=== PATIENT | male | born 1955 ===

== ENCOUNTER 2020-05-14 06:31 | Day surgery (SDC) | payer MEDICARE, MEDICAID, SELFPAY ==
[2020-05-09 11:16] VITALS: BMI 23.4
--- NOTE | 2020-05-10 16:34 | MHC.SHP ---
Pre-Procedural Eval Section A The patient is an INPATIENT: No The History & Physical has been completed within 30 days and I have reviewed it.: Yes Section B Chief Complaint: Cataract Right Eye Allergies: Allergies Allergy/AdvReac Type Severity Reaction Status Date / Time No Known Allergies Allergy Unverified 04/05/20 15:41 Plan Diagnosis/Plan: Unchanged Patient has been examined and remains a candidate for the planned procedure
--- NOTE | 2020-05-11 10:44 | P.CONAN_ITS ---
Documented by User: Morenita Garcia 05/11/20 10:45 HPI - Anesthesia Eval Consult details Narrative: 64yo M for cataract PCP cleared [facility] Past Medical History Medical History History of coma Social History Social History Smoking Status: Former smoker Smoking Quit Date: 2004 Use of substances other than those prescribed or required for medical reasons: No Advance Directives: No Advance Directives Information Provided: No Advance Directives on File: No Meds Allergies Allergy/AdvReac Type Severity Reaction Status Date / Time No Known Allergies Allergy Verified 05/14/20 07:02 Exam Exam Date and Time: May 11, 2020 1044 Height,Weight and Vital Signs: Height 5 ft 11 in Weight 76.204 kg Assessment and Plan Assessment Anesthesia Assessment: Chart Reviewed Documented by User: Jade De La O 05/14/20 07:23 [facility] Past Medical History Medical History History of coma Social History Social History Smoking Status: Former smoker Smoking Quit Date: 2004 Use of substances other than those prescribed or required for medical reasons: No Advance Directives: No Advance Directives Information Provided: No Advance Directives on File: No Meds Allergies Allergy/AdvReac Type Severity Reaction Status Date / Time No Known Allergies Allergy Verified 05/14/20 07:02 Exam Airway Mallampati Class: II TM Dist: >3cm Neck ROM: Full Loose/Missing/Broken Teeth: Yes (Missing multiple teeth on,y has 2 on bottom right) Heart: RRR Lungs: CTA BL Assessment and Plan Final Anesthetic Review NPO: Yes ASA Class: II Final Preanesthetic Review: Meds/Allgs Chart Reviewed and Consent Obtained/Reviewed Patient Risk: Low Procedure Risk: Low Anesthetic Plan Anesthetic Plan: MAC: Disposition: Standard PACU
[2020-05-14 06:38] VITALS: BP 105/68; PULSE 54; RESP 16; TEMP 36.7; O2SAT 98
[2020-05-14] MEDS: Tetracaine HCl/PF 0.5% Oph Sol 4 ML DROPS 1 DROP EYE-RIGHT (07:05)
[2020-05-14] MEDS: Tropicamide 1 % Ophth Sol 3 ML BTL 1 DROP EYE-RIGHT ×3 (07:07→07:16)
--- NOTE | 2020-05-14 08:20 | HO.PNOPHT ---
Ophthalmology Procedure Procedure Ophthalmology Viscoelastic: Marj Echeverriat Dual Pack Pro Ophthalmology Lenses: TECNIS [id number] (21.5) Procedure Notes: PREOPERATIVE DIAGNOSIS: Decreased visual acuity right eye secondary to cataract POSTOPERATIVE DIAGNOSIS: Same PROCEDURE: Right cataract extraction with intraocular lens insertion SURGEON: Ronnell Ahumada M.D. ANESTHESIA: Topical/MAC ESTIMATED BLOOD LOSS: None COMPLICATIONS: None After obtaining informed consent, the patient was brought to the operating room suite and placed in the supine position. After adequate sedation per anesthesia, topical drops of Tetracaine were given to the right eye. The eye was then prepped and draped in the usual sterile fashion. The operating room microscope was then positioned over the operative eye and a lid speculum placed. A paracentesis was created. Viscoelastic was then instilled into the anterior chamber. A three plane incision was then created temporally, utilizing a 2.85 mm keratome. Capsulotomy forceps were then utilized to create a circular tear capsulotomy. Hydrodissection and hydrodelineation were carried out until adequate mobilization of the nucleus occurred. Phacoemulsification was then utilized to remove the dense central nucleus followed by removal of the cortical material utilizing the automated aspiration irrigation unit. Viscoelastic was instilled into the posterior capsular bag followed by placement of a posterior chamber intraocular lens without difficulty. The residual Viscoelastic was then removed utilizing the automated IA machine. The wound was checked and found to be watertight. The patient tolerated the procedure well and the lid speculum was removed. Intracameral injection of Vigamox 0.1 mL followed by a subtenon injection of Kenalog-40 0.2 mL were administered. The patient will be seen in the a.m.
== END 2020-05-14 08:53 | disposition home or self-care (01) ==
PROVIDERS: Visit Provider Ophthalmology
PROC: (CPT 66985; principal; 2020-05-14 08:00)
DX: H25.11 Age-related nuclear cataract, right eye (principal); H54.7 Unspecified visual loss; H40.033 Anatomical narrow angle, bilateral; Z87.891 Personal history of nicotine dependence
CPT/HCPCS: 66984; J2250; J3010; J3300; V2632

== ENCOUNTER 2020-05-28 07:00 | Day surgery (SDC) | payer MEDICARE, MEDICAID, SELFPAY ==
[2020-05-09 11:22] VITALS: BMI 23.4
--- NOTE | 2020-05-24 08:18 | MHC.SHP ---
Pre-Procedural Eval Section A The patient is an INPATIENT: No The History & Physical has been completed within 30 days and I have reviewed it.: Yes Section B Chief Complaint: Cataract Left Eye Allergies: Allergies Allergy/AdvReac Type Severity Reaction Status Date / Time No Known Allergies Allergy Verified 05/14/20 07:02 Plan Diagnosis/Plan: Unchanged Patient has been examined and remains a candidate for the planned procedure
--- NOTE | 2020-05-25 08:48 | P.CONAN_ITS ---
Documented by User: Morenita Garcia 05/25/20 14:02 HPI - Anesthesia Eval Consult details Narrative: 64yo M for cataract PCP cleared 1st eye 05/14/20: [facility], [facility] [facility] Past Medical History Medical History History of coma Surgical History Surgical History H/O cataract extraction Social History Social History Alcohol intake: current Alcohol intake frequency: a few times a month Alcohol type: beer Smoking Status: Former smoker Smoking Quit Date: 2004 Use of substances other than those prescribed or required for medical reasons: No Advance Directives: No Advance Directives Information Provided: No Advance Directives on File: No Meds Allergies Allergy/AdvReac Type Severity Reaction Status Date / Time No Known Allergies Allergy Verified 05/14/20 07:02 Exam Exam Date and Time: May 25, 2020 0848 Height,Weight and Vital Signs: Height 5 ft 11 in Weight 76.204 kg Assessment and Plan Assessment Anesthesia Assessment: Chart Reviewed Documented by User: Jade De La O 05/28/20 07:57 [facility] Past Medical History Medical History History of coma Surgical History Surgical History H/O cataract extraction Social History Social History Alcohol intake: current Alcohol intake frequency: a few times a month Alcohol type: beer Smoking Status: Former smoker Smoking Quit Date: 2004 Use of substances other than those prescribed or required for medical reasons: No Advance Directives: No Advance Directives Information Provided: No Advance Directives on File: No Meds Allergies Allergy/AdvReac Type Severity Reaction Status Date / Time No Known Allergies Allergy Verified 05/14/20 07:02 Exam Airway Mallampati Class: II (Has only 2 teeth in mouth) TM Dist: >3cm Neck ROM: Full Heart: RRR Lungs: CTA BL Assessment and Plan Final Anesthetic Review NPO: Yes ASA Class: II Final Preanesthetic Review: Meds/Allgs Chart Reviewed and Consent Obtained/Reviewed Patient Risk: Low Procedure Risk: Low Anesthetic Plan Disposition: Standard PACU
[2020-05-28 07:51] VITALS: BP 102/69; PULSE 57; RESP 16; TEMP 36.6; O2SAT 96
[2020-05-28] MEDS: Tetracaine HCl/PF 0.5% Oph Sol 4 ML DROPS 1 DROP EYE-LEFT (08:08)
[2020-05-28] MEDS: Tropicamide 1 % Ophth Sol 3 ML BTL 1 DROP EYE-LEFT ×3 (08:09→08:16)
[2020-05-28] MEDS: Lactated Ringers 500 ML 50 ML IV (08:14)
--- NOTE | 2020-05-28 09:03 | HO.PNOPHT ---
Ophthalmology Procedure Procedure Ophthalmology Viscoelastic: Marj Echeverriat Dual Pack Pro Ophthalmology Lenses: TECNIS [id number] (21.5) Procedure Notes: PREOPERATIVE DIAGNOSIS: Decreased visual acuity left eye secondary to cataract POSTOPERATIVE DIAGNOSIS: Same PROCEDURE: Left cataract extraction with intraocular lens insertion SURGEON: Ronnell Ahumada M.D. ANESTHESIA: Topical/MAC ESTIMATED BLOOD LOSS: None COMPLICATIONS: None After obtaining informed consent, the patient was brought to the operation room suite and placed in the supine position. After adequate sedation per anesthesia, topical drops of Tetracaine were given to the left eye. The eye was then prepped and draped in the usual sterile fashion. The operating room microscope was then positioned over the operative eye and a lid speculum placed. A paracentesis was created. Viscoelastic was then instilled into the anterior chamber. A three plane incision was then created temporally, utilizing a 2.85 mm keratome. Capsulotomy forceps were then utilized to create a circular tear capsulotomy. Hydrodissection and hydrodelineation were carried out until adequate mobilization of the nucleus occurred. Phacoemulsification was then utilized to remove the dense central nucleus followed by removal of the cortical material utilizing the automated aspiration irrigation unit. Viscoat elastic was instilled into the posterior capsular bag followed by placement of a posterior chamber intraocular lens without difficulty. The residual Viscoat elastic was then removed utilizing the automated IA machine. The wound was check and found to be watertight. The patient tolerated the procedure well and the lid speculum was removed. Intracameral injection of Vigamox 0.1 mL followed by a subtenon injection of Kenalog-40 0.2 mL were administered. The patient will be seen in the a.m.
[2020-05-28 09:08] VITALS: BP 121/68; PULSE 51; RESP 16; TEMP 36.1; O2SAT 100
== END 2020-05-28 09:53 | disposition home or self-care (01) ==
PROVIDERS: Visit Provider Ophthalmology
PROC: (CPT 66985; principal; 2020-05-28 09:00)
DX: H25.12 Age-related nuclear cataract, left eye (principal); H54.7 Unspecified visual loss; H40.033 Anatomical narrow angle, bilateral; Z87.891 Personal history of nicotine dependence
CPT/HCPCS: 66984; J2250; J3010; J3300; V2632

== ENCOUNTER 2020-11-26 12:35 | Outpatient (REF) | payer MEDICARE, MEDICAID, SELFPAY ==
[2020-11-26 12:52] VITALS: BMI 23.7
[2020-11-26 12:54] VITALS: BP 128/81; PULSE 69; RESP 16; TEMP 37.1; O2SAT 96
== END 2020-11-26 12:36 | disposition home or self-care (01) ==
LOC: HO.MS 12:35
PROVIDERS: Visit Provider Ophthalmology
PROC: (CPT 66821; principal; 2020-11-26 15:40)
DX: H26.492 Other secondary cataract, left eye (principal); H53.8 Other visual disturbances; H55.00 Unspecified nystagmus; Z96.1 Presence of intraocular lens; Z79.899 Other long term (current) drug therapy; Z87.891 Personal history of nicotine dependence
CPT/HCPCS: 66821

== ENCOUNTER 2020-12-10 12:51 | Outpatient (REF) | payer MEDICARE, MEDICAID, SELFPAY ==
[2020-12-10 13:01] VITALS: BP 143/81; PULSE 81; RESP 16; TEMP 36.8; O2SAT 98; BMI 23.7
== END 2020-12-10 12:52 | disposition home or self-care (01) ==
LOC: HO.MS 12:51
PROVIDERS: Visit Provider Ophthalmology
PROC: (CPT 66821; principal; 2020-12-10 18:00)
DX: H26.491 Other secondary cataract, right eye (principal); Z96.1 Presence of intraocular lens; Z87.891 Personal history of nicotine dependence
CPT/HCPCS: 66821

== ENCOUNTER 2022-08-15 11:45 | Outpatient (REF) | payer MEDICARE, MEDICAID, SELFPAY ==
[2022-08-15 14:05] LABS: MANUAL DIFF FLAG NO
[2022-08-15 14:11] LABS: Basophils Absolute Auto 0.1 X10*3/uL (0.0-0.2); Basophils Percent Auto 0.9 % (0-2); Eosinophils Absolute Auto 0.3 X10*3/uL (0.0-0.4); Eosinophils Percent Auto 4.9 % (0-4); Hematocrit 43.1 % (42.0-52.0); Hemoglobin 13.3 g/dl (14.0-18.0); Mean Corpuscular HGB Conc 30.9 g/dl (31.0-36.0); Mean Corpuscular Hemoglobin 26.9 pg (27.0-33.0); Mean Corpuscular Volume 87.1 fL (80.0-98.0); Mean Platelet Volume 10.4 fL (9.4-12.4); Monocytes Absolute Auto 0.6 X10*3/uL (0.1-1.2); Monocytes Percent Auto 11.1 % (2-11); Neutrophils Absolute Auto 2.4 x10*3/uL (2.0-8.3); Neutrophils Percent Auto 45.1 % (45-73); Platelet Count 239 X10*3/uL (160-400); Red Blood Count 4.95 X10*6/uL (4.60-5.80); Red Cell Distribution Width 13.5 % (11.0-16.0); White Blood Count 5.3 X10*3/uL (4.8-10.8)
[2022-08-15 14:45] LABS: Alanine Aminotransferase 29 U/L (0-40); Alkaline Phosphatase 108 U/L (39-117); Anion Gap 13 (12-20); Aspartate Amino Transferase 38 U/L (5-37); Bilirubin Total 0.6 mg/dL (0.0-1.0); Blood Urea Nitrogen 11 mg/dL (9-16); Calcium 9.9 mg/dL (8.4-10.2); Carbon Dioxide 32 mmol/L (22-29); Chloride 102 mmol/L (96-108); Estimated Glomerular Filt Rate > 60; Glucose Random 96 mg/dL (60-115); Potassium 4.5 mmol/L (3.3-5.1); Sodium 142 mmol/L (135-145); Total Protein 7.7 g/dL (6.5-8.0)
[2022-08-18 04:36] LABS: HBc Num1 9.44 S/CO (0.00-0.79); HBsAGNum1 0.26 S/CO (0.00-0.99); HIV AB/AG Nonreactive (Nonreactive); HIV Num 1 0.05 S/CO (0.00-0.99); Hepatitis A Antibody IgM 0.42 Index (0-0.79); Hepatitis B Surface Antigen Negative (Negative); ~HepC Num1 13.12 S/CO (0.00-0.79); ~Hepatitis A Antibody IgM Nonreactive (Nonreactive); ~Hepatitis B Surface Antibody NONREACTIVE (Nonreactive); ~Hepatitis C Antibody Reactive (Nonreactive)
[2022-08-18 05:18] LABS: HBc Num2 9.04 S/CO; HBc Num3 9.04 S/CO; Hepatitis B Core Antibody Reactive (Nonreactive)
[2022-08-20 01:42] LABS: Hepatitis B Core Antibody IgM NON-REACTIVE (NON-REACTIVE)
== END 2022-08-15 11:46 | disposition home or self-care (01) ==
LOC: HO.HMGCLDS 11:45
PROVIDERS: Visit Provider Physician Assistant
DX: Z00.00 Encounter for general adult medical examination without abnormal findings (principal)
CPT/HCPCS: 36415; 80053; 85025; 86704; 86705; 86706; 86709; 86803; 87340; 87389

== ENCOUNTER 2022-09-05 08:37 | Outpatient (REF) | payer MEDICARE, MEDICAID, SELFPAY ==
--- NOTE | ~2022-09-05 | US_ITS ---
EXAMINATION: US ABDOMEN COMPLETE CLINICAL INFORMATION: Abnormal levels of other serum enzymes. COMPARISON: None TECHNIQUE: Real-time imaging of the abdominal viscera. FINDINGS: PANCREAS: Largely obscured by overlapping bowel gas. ABDOMINAL AORTA: The proximal, mid, and distal segments are normal in caliber. INFERIOR VENA CAVA: Visualized portions are normal. LIVER: The liver is normal in size. The liver contour is normal. There is diffuse increased liver parenchymal echogenicity. No focal hepatic lesion. There is no intrahepatic biliary duct dilatation seen. GALLBLADDER: There is echogenic bile. The gallbladder is physiologically distended without evidence of stones, polyps, wall thickening or pericholecystic fluid. COMMON BILE DUCT: Normal in caliber measuring 0.5 cm in diameter. RIGHT KIDNEY: Normal. No hydronephrosis. No renal calculi or focal parenchymal lesions. The kidney measures 9.7 cm in maximum dimension. LEFT KIDNEY: Normal. No hydronephrosis. No renal calculi or focal parenchymal lesions. The kidney measures 9.9 cm in maximum dimension. SPLEEN: Normal. The spleen measures 10.2 cm in maximum dimension. FREE FLUID: None. US/US abdomen complete IMPRESSION: There is generalized increase in hepatic echotexture, consistent with fatty infiltration or hepatocellular disease. Please correlate clinically. No focal hepatic mass or intrahepatic biliary dilatation is seen.
== END 2022-09-05 08:38 | disposition home or self-care (01) ==
LOC: HO.HMGCX 08:37
PROVIDERS: PCP Internal Medicine; Visit Provider Internal Medicine
DX: R74.8 Abnormal levels of other serum enzymes (principal)
CPT/HCPCS: 76700

== ENCOUNTER 2022-09-13 09:18 | Outpatient (REF) | payer MEDICARE, MEDICAID, SELFPAY ==
[2022-09-17 17:33] LABS: HCV RNA PCR Qn 12300000 IU/mL (NOT DETECTED); HCV RNA PCR Qn 7.09 Log IU/mL (NOT DETECTED)
[2022-09-24 21:38] LABS: HCV Genotype LiPA 1a
== END 2022-09-13 09:19 | disposition home or self-care (01) ==
LOC: HO.LAB 09:18
PROVIDERS: PCP Internal Medicine; Visit Provider Internal Medicine
DX: Z11.3 Encounter for screening for infections with a predominantly sexual mode of transmission (principal)
CPT/HCPCS: 36415; 87522; 87902

== ENCOUNTER 2022-09-22 11:59 | Outpatient (REF) | payer MEDICARE, MEDICAID, SELFPAY ==
[2022-09-22 14:15] LABS: Cholesterol 139 mg/dL; HDL Cholesterol 43 mg/dL; LDL Cholesterol Calculated 86 mg/dl; Triglycerides 51 mg/dL
[2022-09-22 14:26] LABS: HIV AB/AG Nonreactive (Nonreactive); HIV Num 1 0.07 S/CO (0.00-0.99)
[2022-09-22 14:31] LABS: Thyroid Stimulating Hormone 1.14 uIU/mL (0.32-4.0)
[2022-09-23 13:19] LABS: HCV RNA PCR Qn 6.51 Log IU/mL (NOT DETECTED)
[2022-09-30 00:44] LABS: FIB-ALT 31 U/L (9-46); FIB-Alpha-2-Macroglobulin 383 mg/dL (106-279); FIB-Apolipoprotein A1 127 mg/dL (94-176); FIB-GGT 84 U/L (3-70); FIB-Haptoglobin 149 mg/dL (43-212); FIB-Total Bilirubin 0.8 mg/dL (0.2-1.2); Liver Fibrosis Score 0.81; Liver Fibrosis Stage F4; Nec Inflam Act Grade A0-A1; Nec Inflam Act Score 0.28
[2022-09-30 16:04] LABS: HCV Genotype LiPA 1a
== END 2022-09-22 12:00 | disposition home or self-care (01) ==
LOC: HO.LAB 11:59
PROVIDERS: PCP Internal Medicine; Referring Provider Internal Medicine; Visit Provider Physician Assistant
DX: B19.20 Unspecified viral hepatitis C without hepatic coma (principal); F41.1 Generalized anxiety disorder; R79.89 Other specified abnormal findings of blood chemistry; Z79.899 Other long term (current) drug therapy
CPT/HCPCS: 36415; 80061; 81596; 84443; 87389; 87522; 87902; 99212

== ENCOUNTER → 2022-10-06 12:53 | Outpatient (BNVA) | payer MEDICARE, MEDICAID, SELFPAY | PROVIDERS: PCP Internal Medicine; Visit Provider Physician Assistant | DX: B19.20 Unspecified viral hepatitis C without hepatic coma (principal); Z86.19 Personal history of other infectious and parasitic diseases | CPT/HCPCS: 99212 ==

== ENCOUNTER 2022-11-24 08:09 | Outpatient (REF) | payer MEDICARE, MEDICAID, SELFPAY ==
[2022-11-24 08:27] LABS: MANUAL DIFF FLAG NO
[2022-11-24 08:42] LABS: Basophils Absolute Auto 0.1 X10*3/uL (0.0-0.2); Basophils Percent Auto 1.1 % (0-2); Eosinophils Absolute Auto 0.2 X10*3/uL (0.0-0.4); Hematocrit 44.4 % (42.0-52.0); Hemoglobin 14.1 g/dl (14.0-18.0); Imm Gran Abs Auto 0.02 X10*3/uL (0.00-0.03); Imm Gran Pct Auto 0.3 % (0.0-0.4); Lymphocytes Absolute Auto 2.2 X10*3/uL (1.2-4.9); Mean Corpuscular HGB Conc 31.8 g/dl (31.0-36.0); Mean Corpuscular Hemoglobin 27.5 pg (27.0-33.0); Mean Corpuscular Volume 86.5 fL (80.0-98.0); Monocytes Absolute Auto 0.7 X10*3/uL (0.1-1.2); Monocytes Percent Auto 10.8 % (2-11); Neutrophils Absolute Auto 3.3 x10*3/uL (2.0-8.3); Neutrophils Percent Auto 50.8 % (45-73); Platelet Count 260 X10*3/uL (160-400); Red Blood Count 5.13 X10*6/uL (4.60-5.80); White Blood Count 6.4 X10*3/uL (4.8-10.8)
[2022-11-24 09:05] LABS: Alanine Aminotransferase 18 U/L (0-40); Albumin Level 4.5 g/dL (3.5-5.0); Alkaline Phosphatase 84 U/L (39-117); Anion Gap 13 (12-20); Aspartate Amino Transferase 24 U/L (5-37); Bilirubin Total 0.7 mg/dL (0.0-1.0); Blood Urea Nitrogen 13 mg/dL (9-16); Calcium 10.3 mg/dL (8.4-10.2); Carbon Dioxide 29 mmol/L (22-29); Chloride 105 mmol/L (96-108); Estimated Glomerular Filt Rate > 60; Glucose Random 120 mg/dL (60-115); Potassium 5.4 mmol/L (3.3-5.1); Sodium 142 mmol/L (135-145); Total Protein 8.2 g/dL (6.5-8.0)
[2022-11-27 17:09] LABS: HCV Log PCR <1.18 NOT DETECTED Log IU/mL (NOT DETECTED); HepC Viral Load <15 NOT DETECTED IU/mL (NOT DETECTED)
== END 2022-11-24 08:10 | disposition home or self-care (01) ==
LOC: HO.LAB 08:09
PROVIDERS: PCP Internal Medicine; Visit Provider Physician Assistant
DX: B19.20 Unspecified viral hepatitis C without hepatic coma (principal); Z86.19 Personal history of other infectious and parasitic diseases
CPT/HCPCS: 36415; 80053; 85025; 87522

== ENCOUNTER → 2022-12-01 07:28 | Outpatient (BNVA) | payer MEDICARE, MEDICAID, SELFPAY | PROVIDERS: PCP Internal Medicine; Referring Provider Internal Medicine; Visit Provider Physician Assistant | DX: B19.20 Unspecified viral hepatitis C without hepatic coma (principal) | CPT/HCPCS: 99212 ==

== ENCOUNTER 2022-12-22 07:21 | Outpatient (REF) | payer MEDICARE, SELFPAY ==
[2022-12-22 07:38] LABS: MANUAL DIFF FLAG NO
[2022-12-22 08:39] LABS: Basophils Absolute Auto 0.1 X10*3/uL (0.0-0.2); Basophils Percent Auto 0.8 % (0-2); Eosinophils Absolute Auto 0.2 X10*3/uL (0.0-0.4); Eosinophils Percent Auto 2.5 % (0-4); Imm Gran Abs Auto 0.01 X10*3/uL (0.00-0.03); Imm Gran Pct Auto 0.2 % (0.0-0.4); Lymphocytes Absolute Auto 1.7 X10*3/uL (1.2-4.9); Lymphocytes Percent Auto 28.5 % (20-40); Mean Corpuscular HGB Conc 31.1 g/dl (31.0-36.0); Mean Corpuscular Volume 86.7 fL (80.0-98.0); Mean Platelet Volume 9.9 fL (9.4-12.4); Monocytes Absolute Auto 0.7 X10*3/uL (0.1-1.2); Monocytes Percent Auto 11.3 % (2-11); Neutrophils Absolute Auto 3.4 x10*3/uL (2.0-8.3); Neutrophils Percent Auto 56.7 % (45-73); Platelet Count 315 X10*3/uL (160-400); Red Blood Count 5.19 X10*6/uL (4.60-5.80); Red Cell Distribution Width 13.6 % (11.0-16.0); White Blood Count 5.9 X10*3/uL (4.8-10.8)
[2022-12-22 09:08] LABS: Alanine Aminotransferase 11 U/L (0-40); Albumin Level 4.4 g/dL (3.5-5.0); Alkaline Phosphatase 101 U/L (39-117); Anion Gap 16 (12-20); Aspartate Amino Transferase 20 U/L (5-37); Bilirubin Total 0.9 mg/dL (0.0-1.0); Blood Urea Nitrogen 14 mg/dL (9-16); Carbon Dioxide 26 mmol/L (22-29); Chloride 105 mmol/L (96-108); Estimated Glomerular Filt Rate > 60; Glucose Random 102 mg/dL (60-115); Potassium 4.6 mmol/L (3.3-5.1); Sodium 142 mmol/L (135-145); Total Protein 8.7 g/dL (6.5-8.0)
[2022-12-23 19:59] LABS: HCV Log PCR <1.18 NOT DETECTED Log IU/mL (NOT DETECTED); HepC Viral Load <15 NOT DETECTED IU/mL (NOT DETECTED)
== END 2022-12-22 07:22 | disposition home or self-care (01) ==
LOC: HO.LAB 07:21
PROVIDERS: PCP Internal Medicine; Visit Provider Physician Assistant
DX: B19.20 Unspecified viral hepatitis C without hepatic coma (principal)
CPT/HCPCS: 36415; 80053; 85025; 87522

== ENCOUNTER 2023-01-19 08:10 | Outpatient (REF) | payer MEDICARE, SELFPAY ==
[2023-01-19 09:35] LABS: Alanine Aminotransferase 14 U/L (0-40); Albumin Level 4.3 g/dL (3.5-5.0); Alkaline Phosphatase 93 U/L (39-117); Anion Gap 14 (12-20); Aspartate Amino Transferase 19 U/L (5-37); Bilirubin Total 0.8 mg/dL (0.0-1.0); Blood Urea Nitrogen 13 mg/dL (9-16); Calcium 9.7 mg/dL (8.4-10.2); Carbon Dioxide 24 mmol/L (22-29); Chloride 105 mmol/L (96-108); Estimated Glomerular Filt Rate > 60; Glucose Random 98 mg/dL (60-115); Potassium 3.8 mmol/L (3.3-5.1); Sodium 139 mmol/L (135-145); Total Protein 8.6 g/dL (6.5-8.0)
[2023-01-21 13:39] LABS: Prot Elec - Albumin 4.4 g/dL (3.8-4.8); Prot Elec - Alpha1 0.2 g/dL (0.2-0.3); Prot Elec - Beta 1 0.5 g/dL (0.4-0.6); Prot Elec - Beta 2 0.3 g/dL (0.2-0.5); Prot Elec - Gamma 1.9 g/dL (0.8-1.7); Prot Elec - Total Protein 8.4 g/dL (6.1-8.1)
== END 2023-01-19 08:11 | disposition home or self-care (01) ==
LOC: HO.LAB 08:10
PROVIDERS: PCP Internal Medicine; Visit Provider Physician Assistant
DX: R77.9 Abnormality of plasma protein, unspecified (principal); B19.20 Unspecified viral hepatitis C without hepatic coma
CPT/HCPCS: 36415; 80053; 84165; 85025; 87522; 87902

== ENCOUNTER → 2023-01-26 08:13 | Outpatient (BNVA) | payer MEDICARE, MEDICAID, SELFPAY | PROVIDERS: PCP Internal Medicine; Visit Provider Physician Assistant | DX: B19.20 Unspecified viral hepatitis C without hepatic coma (principal); Z53.20 Procedure and treatment not carried out because of patient's decision for unspecified reasons | CPT/HCPCS: 99212 ==

== ENCOUNTER 2023-02-16 07:20 | Outpatient (REF) | payer MEDICARE, MEDICAID, SELFPAY ==
[2023-02-16 07:37] LABS: MANUAL DIFF FLAG NO
[2023-02-16 08:12] LABS: Basophils Absolute Auto 0.1 X10*3/uL (0.0-0.2); Basophils Percent Auto 0.7 % (0-2); Eosinophils Absolute Auto 0.1 X10*3/uL (0.0-0.4); Eosinophils Percent Auto 1.8 % (0-4); Hematocrit 45.1 % (42.0-52.0); Hemoglobin 14.2 g/dl (14.0-18.0); Imm Gran Abs Auto 0.01 X10*3/uL (0.00-0.03); Imm Gran Pct Auto 0.1 % (0.0-0.4); Lymphocytes Absolute Auto 1.9 X10*3/uL (1.2-4.9); Lymphocytes Percent Auto 28.1 % (20-40); Mean Corpuscular HGB Conc 31.5 g/dl (31.0-36.0); Mean Corpuscular Hemoglobin 26.8 pg (27.0-33.0); Mean Corpuscular Volume 85.3 fL (80.0-98.0); Mean Platelet Volume 10.2 fL (9.4-12.4); Monocytes Absolute Auto 0.8 X10*3/uL (0.1-1.2); Monocytes Percent Auto 11.4 % (2-11); Neutrophils Absolute Auto 3.9 x10*3/uL (2.0-8.3); Neutrophils Percent Auto 57.9 % (45-73); Platelet Count 288 X10*3/uL (160-400); Red Blood Count 5.29 X10*6/uL (4.60-5.80); Red Cell Distribution Width 12.8 % (11.0-16.0); White Blood Count 6.8 X10*3/uL (4.8-10.8)
[2023-02-16 08:46] LABS: Anion Gap 21 (12-20); Blood Urea Nitrogen 18 mg/dL (9-16); Calcium 10.3 mg/dL (8.4-10.2); Carbon Dioxide 19 mmol/L (22-29); Chloride 104 mmol/L (96-108); Estimated Glomerular Filt Rate > 60; Glucose Random 113 mg/dL (60-115); Potassium 3.7 mmol/L (3.3-5.1); Sodium 140 mmol/L (135-145)
[2023-02-17 19:28] LABS: HCV Log PCR <1.18 NOT DETECTED Log IU/mL (NOT DETECTED); HepC Viral Load <15 NOT DETECTED IU/mL (NOT DETECTED)
[2023-02-18 13:43] LABS: Immunoglobulin G Subclass 1 1151 mg/dL (382-929); Immunoglobulin G Subclass 2 794 mg/dL (241-700); Immunoglobulin G Subclass 3 166 mg/dL (22-178); Immunoglobulin G Subclass 4 61.9 mg/dL (4-86); Immunoglobulin G Total 2017 mg/dL (600-1540)
[2023-02-18 17:33] LABS: IgA 415 mg/dL (70-320); IgG 2338 mg/dL (600-1540); IgM 115 mg/dL (50-300)
== END 2023-02-16 07:21 | disposition home or self-care (01) ==
LOC: HO.LAB 07:20
PROVIDERS: PCP Internal Medicine; Visit Provider Physician Assistant
DX: R77.9 Abnormality of plasma protein, unspecified (principal); B19.20 Unspecified viral hepatitis C without hepatic coma; Z86.19 Personal history of other infectious and parasitic diseases
CPT/HCPCS: 36415; 80048; 82784; 85025; 87522

== ENCOUNTER 2023-02-23 07:38 | Outpatient (AMB) | payer MEDICARE, MEDICAID, SELFPAY ==
--- NOTE | 2023-02-23 07:47 | MHC.OFFVIS ---
Intake Vital Signs 02/23/23 07:52 Height 5 ft 11 in Weight 154 lb BMI 21.5 BP 118/95 H Blood Pressure Location Lt brachial Position Sitting Pulse 86 Intake Visit Reasons: 4th visit epclusa Intake Note: Patient follow up for lab results. Patient cc: GERD, right side of abdominal pain and also patient said he is not eating well. Denies any other GI issues. 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 Appetite is good- noted reflux -on occasion-Tums- non issue- does not want any further medication Bowels are normal. He admits to memory loss-this is been ongoing for years. [facility] Medical History (Updated 02/23/23 @ 08:51 by Dot Mai PA-C) Hepatitis C History of coma Surgical History H/O cataract extraction Family History Mother Stomach cancer Maternal Grandmother Eyelid cancer Father Cancer Social History Household Members Other:: sibling Alcohol intake: current Alcohol intake frequency: a few times a month Alcohol type: beer Patient Tobacco Use Status: Former Tobacco user e-Cigarette/Vaping Use: Never Used Cognitive needs: No Hearing needs: No Vision needs: No Review of Systems Const All systems reviewed & are unremarkable except as noted in HPI and below Card Denies chest pain and Denies dyspnea Resp Denies dyspnea GI Denies abdominal pain, Denies change in bowel habits, Reports dyspepsia (Occasional Tums) and Denies nausea Neuro Denies confusion and Reports memory loss Psych Denies confusion and Reports memory loss Physical Exam Vital Signs: Last Vital Signs Pulse 86 02/23/23 07:52 BP 118/95 H 02/23/23 07:52 BMI result Body Mass Index 21.5 Const General: cooperative, comfortable and no acute distress; No confusion Orientation/consciousness: patient oriented x3 and No confusion Limitations: no limitations HEENT Other: Wearing surgical mask Eyes Sclerae: sclerae normal Resp Effort & Inspection: normal respiratory effort and able to speak in complete sentences Auscultation: clear to auscultation bilaterally and diminished lung sounds Cardio Rate: regular rate Rhythm: regular rhythm Heart sounds: S1 normal heart sound present and S2 normal heart sound present GI Palpation (GI): Soft to palpation, nontender and no guarding Auscultation: normal bowel sounds Skin General skin exam: no rashes or lesions noted Neuro General: patient oriented x3 and No confusion Extrem General: Yes full ROM Psych Appearance: grossly normal Speech and movement: Clear speech present Affect: Labile affect present Attitude: cooperative Thought content: Normal thought content present Results Reviewed Results Reviewed: US/US abdomen complete IMPRESSION: There is generalized increase in hepatic echotexture, consistent with fatty infiltration or hepatocellular disease. Please correlate clinically. No focal hepatic mass or intrahepatic biliary dilatation is seen. ? HCV-ETR- undetectable Assessment & Plan Assessment & Plan (1) Elevated serum protein level: Comment: 67-year-old male HCV treated ETR no detectable viral, Review -elevated protein, immunoglobulins ( infection), consulting with Dr. Palacios Slow to detail Code(s): R77.9 - Abnormality of plasma protein, unspecified (2) History of hepatitis B: Comment: Recheck liver enzymes q.4 weeks-(history HBV, no antibodies) Code(s): Z86.19 - Personal history of other infectious and parasitic diseases (3) Hepatitis C: Comment: HCV treatment naive-completed Epclusa labs-reviewed, -no detectable viral, Check viral count 3 months S/P treatment Code(s): B19.20 - Unspecified viral hepatitis C without hepatic coma (4) Colonoscopy refused: Comment: Never had index screening, no GI concerns,reenforced importance submit for Cologuard-reinforced Code(s): Z53.20 - Procedure and treatment not carried out because of patient's decision for unspecified reasons Plan Labs April, follow back in office however if unable to come in I will call him with those results Otherwise will consult further with Dr. Palacios on other labs. And call patient with plan Orders: Orders Hepatitis B Viral DNA Qn 2 Months B19.10 - Unspecified viral hepatitis B without hepatic coma Hepatitis C Viral Load 2 Months B19.20 - Unspecified viral hepatitis C without hepatic coma Patient Instructions: Will follow-up with patient by phone-to further discuss labs he does not need to come into the office (he bike rides) However we will recheck viral count as well at 3 months post treatment with no detectable virus he will be considered cured.? However HCV antibody will remain positive for infnite amount of time- He encouraged to call questions or concerns Encouraged to submit Cologuard Appreciate the opportunity assist in care this pleasant Gent Coding Level of Care Code Est Pt Level 3 (64062) Diagnoses Elevated serum protein level R77.9 History of hepatitis B Z86.19 Hepatitis C B19.20 Colonoscopy refused Z53.20 Time Spent (min) 25
[2023-02-23 07:52] VITALS: BP 118/95; PULSE 86; BMI 21.5
== END 2023-02-23 08:21 | disposition home or self-care (01) ==
PROVIDERS: PCP Internal Medicine; Visit Provider Physician Assistant
DX: R77.9 Abnormality of plasma protein, unspecified (principal); Z86.19 Personal history of other infectious and parasitic diseases; B19.20 Unspecified viral hepatitis C without hepatic coma; Z53.20 Procedure and treatment not carried out because of patient's decision for unspecified reasons
CPT/HCPCS: 99213

== ENCOUNTER → 2023-02-23 07:38 | Outpatient (BNVA) | payer MEDICARE, MEDICAID, SELFPAY | PROVIDERS: PCP Internal Medicine; Visit Provider Physician Assistant | DX: B19.20 Unspecified viral hepatitis C without hepatic coma (principal); K21.9 Gastro-esophageal reflux disease without esophagitis; R10.31 Right lower quadrant pain; R77.9 Abnormality of plasma protein, unspecified; Z86.19 Personal history of other infectious and parasitic diseases; Z79.624 Long term (current) use of inhibitors of nucleotide synthesis; Z53.20 Procedure and treatment not carried out because of patient's decision for unspecified reasons | CPT/HCPCS: 99212 ==

== ENCOUNTER 2023-05-04 08:04 | Outpatient (REF) | payer MEDICARE, SELFPAY ==
[2023-05-06 18:39] LABS: HCV Log PCR <1.18 NOT DETECTED Log IU/mL (NOT DETECTED); HepC Viral Load <15 NOT DETECTED IU/mL (NOT DETECTED)
[2023-05-06 19:48] LABS: Hepatitis B Viral DNA Qn - cp NOT DETECTED Log IU/mL (NOT DETECTED); Hepatitis B Viral DNA Qn-IU/mL NOT DETECTED (NOT DETECTED)
== END 2023-05-04 08:05 | disposition home or self-care (01) ==
LOC: HO.LAB 08:04
PROVIDERS: PCP Internal Medicine; Visit Provider Physician Assistant
DX: B19.10 Unspecified viral hepatitis B without hepatic coma (principal); B19.20 Unspecified viral hepatitis C without hepatic coma; E88.09 Other disorders of plasma-protein metabolism, not elsewhere classified; R76.8 Other specified abnormal immunological findings in serum
CPT/HCPCS: 87517; 87522

== ENCOUNTER 2023-05-11 08:20 | Outpatient (AMB) | payer MEDICARE, MEDICAID, SELFPAY ==
--- NOTE | 2023-05-11 08:28 | MHC.OFFVIS ---
Intake Vital Signs 05/11/23 08:29 Height 5 ft 11 in Weight 164 lb BMI 22.9 BP 130/64 Blood Pressure Location Lt brachial Position Sitting Pulse 83 Intake Visit Reasons: Follow Up Labs Intake Note: Patient follow up for HCV and lab results. Patient denies any GI issues Strip [place] Supervisor Required: No Accompanied by: Self / Same As Patient Allergies No Known Allergies Allergy (Verified 05/11/23 08:28) Medication List - Last Reconciled 05/11/23 by Dot Mai PA-C No Known Home Meds HPI HPI Comments History of Present Illness Details A 67 y/o male follows up - HCV and cologuard. He says he has not submitted cologuard- he says he is sending out this week. appetite is good- he is gaining weight- he is happpy about. No bowel issues He walks a lot-or bike rides-- He admits to panic attacks- he was taking a medication-however has not seen pcp- and ran out- No GI complaints. He says he seems to fall more frequently- but has been ongoing since his 20s No ARIAS, dizziness, CP, sob- PFSH Medical History Hepatitis C History of coma Surgical History H/O cataract extraction Family History Mother Stomach cancer Maternal Grandmother Eyelid cancer Father Cancer Social History Household Members Other:: sibling Alcohol intake: current Alcohol intake frequency: a few times a month Alcohol type: beer Patient Tobacco Use Status: Former Tobacco user e-Cigarette/Vaping Use: Never Used Cognitive needs: No Hearing needs: No Vision needs: No Review of Systems Const All systems reviewed & are unremarkable except as noted in HPI and below Card Denies chest pain and Denies dyspnea Resp Denies dyspnea GI Denies abdominal pain Psych Reports abnormal sleep pattern, Reports anxiety and Reports panic attacks Physical Exam Vital Signs: Last Vital Signs Pulse 83 05/11/23 08:29 BP 130/64 05/11/23 08:29 BMI result Body Mass Index 22.9 Steady gait Const General: cooperative and comfortable Orientation/consciousness: patient oriented x3 Limitations: no limitations Eyes Sclerae: sclerae normal Resp Effort & Inspection: normal respiratory effort and able to speak in complete sentences Auscultation: clear to auscultation bilaterally, no rales, no rhonchi and no wheezes Cardio Rate: regular rate Rhythm: regular rhythm Heart sounds: S1 normal heart sound present and S2 normal heart sound present GI Palpation (GI): Soft to palpation and nontender Auscultation: normal bowel sounds Skin General skin exam: no rashes or lesions noted Neuro General: patient oriented x3 Extrem General: Yes full ROM Psych Appearance: grossly normal and well kempt Speech and movement: Clear speech present Affect: Anxious affect present Attitude: cooperative Thought content: Normal thought content present Judgement: Fair judgement present (Psych) Assessment & Plan Assessment & Plan (1) Hepatitis C: Comment: Steady gait HCV treatment naive-completed Epclusa labs-reviewed, -no detectable viral, Code(s): B19.20 - Unspecified viral hepatitis C without hepatic coma (2) Colonoscopy refused: Comment: Never had index screening, no GI concerns,reenforced importance submit for Cologuard-reinforced Code(s): Z53.20 - Procedure and treatment not carried out because of patient's decision for unspecified reasons Plan: submit cologuard- says he has been in touch w/ [facility]- Plan Make appt to see pcp-CATHERINE- sent msg plans to go there today- Patient Instructions: Alert, steady gait- Make appt w/ PCP today Call with questions or concerns Submit cologuard- call for resuly If positive- will recommend a colonoscopy- Coding Level of Care Code Est Pt Level 3 (04761) Diagnoses Hepatitis C B19.20 Colonoscopy refused Z53.20 Time Spent (min) 25
[2023-05-11 08:29] VITALS: BP 130/64; PULSE 83; BMI 22.9
== END 2023-05-11 10:07 | disposition home or self-care (01) ==
PROVIDERS: PCP Internal Medicine; Visit Provider Physician Assistant
DX: B19.20 Unspecified viral hepatitis C without hepatic coma (principal); Z53.20 Procedure and treatment not carried out because of patient's decision for unspecified reasons
CPT/HCPCS: 99213

== ENCOUNTER → 2023-05-11 08:20 | Outpatient (BNVA) | payer MEDICARE, MEDICAID, SELFPAY | PROVIDERS: PCP Internal Medicine; Visit Provider Physician Assistant | DX: B19.20 Unspecified viral hepatitis C without hepatic coma (principal); Z53.20 Procedure and treatment not carried out because of patient's decision for unspecified reasons | CPT/HCPCS: 99212 ==

== ENCOUNTER 2023-05-13 08:34 | Outpatient (AMB) | payer MEDICARE, MEDICAID, SELFPAY ==
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
[2023-05-13 08:41] VITALS: BP 124/76; PULSE 58; O2SAT 98; BMI 22.9
== END 2023-05-13 09:29 | disposition home or self-care (01) ==
LOC: HO.HMGH 08:34
PROVIDERS: PCP Internal Medicine; Visit Provider Internal Medicine
DX: Z00.00 Encounter for general adult medical examination without abnormal findings (principal); B19.20 Unspecified viral hepatitis C without hepatic coma; I10 Essential (primary) hypertension; F41.1 Generalized anxiety disorder
CPT/HCPCS: 99397

== ENCOUNTER 2023-11-12 09:47 | Outpatient (AMB) | payer MEDICARE, MEDICAID, SELFPAY ==
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
[2023-11-12 10:04] VITALS: BP 120/82; PULSE 68; O2SAT 98; BMI 22.7
== END 2023-11-12 11:40 | disposition home or self-care (01) ==
PROVIDERS: PCP Internal Medicine; Visit Provider Internal Medicine
DX: F41.1 Generalized anxiety disorder (principal); R29.6 Repeated falls
CPT/HCPCS: 99214

== ENCOUNTER 2023-11-13 09:11 | Outpatient (REF) | payer MEDICARE, MEDICAID, SELFPAY ==
[2023-11-13 10:32] LABS: Appearance Urine Clear; Color Urine Dark Yellow; Glucose Urine UA Negative (Negative); Leukocyte Esterase Urine Negative (Negative); Nitrite Urine Negative (Negative); Specific Gravity - Urine 1.025 (1.005-1.025); Urine Blood Negative (Negative); Urine Ketones Trace mg/dL (Negative); Urine Protein Negative (Neg-Trace)
[2023-11-13 10:34] LABS: Hematocrit 41.2 % (42.0-52.0); Hemoglobin 13.1 g/dl (14.0-18.0); Mean Corpuscular HGB Conc 31.8 g/dl (31.0-36.0); Mean Corpuscular Hemoglobin 27.2 pg (27.0-33.0); Mean Corpuscular Volume 85.7 fL (80.0-98.0); Mean Platelet Volume 10.3 fL (9.4-12.4); Platelet Count 281 X10*3/uL (160-400); Red Blood Count 4.81 X10*6/uL (4.60-5.80); Red Cell Distribution Width 13.5 % (11.0-16.0); White Blood Count 6.7 X10*3/uL (4.8-10.8)
[2023-11-13 10:52] LABS: Alanine Aminotransferase 10 U/L (0-40); Albumin Level 4.4 g/dL (3.5-5.0); Alkaline Phosphatase 101 U/L (39-117); Anion Gap 14 (12-20); Aspartate Amino Transferase 20 U/L (5-37); Bilirubin Direct 0.2 mg/dL (0.0-0.5); Bilirubin Total 0.4 mg/dL (0.0-1.0); Blood Urea Nitrogen 13 mg/dL (9-16); Calcium 9.5 mg/dL (8.4-10.2); Carbon Dioxide 28 mmol/L (22-29); Chloride 104 mmol/L (96-108); Cholesterol 174 mg/dL (<200); Estimated Glomerular Filt Rate > 60; Glucose Random 103 mg/dL (60-115); HDL Cholesterol 58 mg/dL (>40); LDL Cholesterol Calculated 102 mg/dL (<100); Potassium 3.7 mmol/L (3.3-5.1); Sodium 142 mmol/L (135-145); Total Protein 8.5 g/dL (6.5-8.0); Triglycerides 73 mg/dL (<150)
[2023-11-13 11:02] LABS: Syphilis Screen Nonreactive (Nonreactive)
[2023-11-13 11:12] LABS: Thyroid Stimulating Hormone 1.88 uIU/mL (0.32-4.0)
== END 2023-11-13 09:12 | disposition home or self-care (01) ==
LOC: HO.HMGCLDS 09:11
PROVIDERS: PCP Internal Medicine; Visit Provider Internal Medicine
DX: F41.1 Generalized anxiety disorder (principal); R29.6 Repeated falls
CPT/HCPCS: 36415; 80048; 80061; 80076; 81003; 84443; 85027; 86780

== ENCOUNTER 2024-01-05 08:56 | Day surgery (SDC) | payer MEDICARE, MEDICAID, SELFPAY ==
[2024-01-05] VITALS (12 sets, daily range): BP systolic 111–156; BP diastolic 62–89; PULSE 54–68; RESP 14–20; TEMP 36.2–37.2; O2SAT 97–100; BMI 23.7
--- NOTE | ~2024-01-05 | FL_ITS ---
EXAMINATION: XR FLUOROSCOPY WITH IMAGES CLINICAL INFORMATION: Left elbow fracture. COMPARISON: None available. TECHNIQUE: Fluoroscopy Supervised By: Dr. Reynolds. Fluoroscopy Time: 0.1 min. Cumulative Dose: 0.196 mGy. DAP: 0.04948 mGym2. Images: 2. FINDINGS: Intraoperative fluoroscopy and spot films were performed during a procedure in the OR. Two pins have been placed through the fractured proximal ulna/olecranon. A cerclage suture is present as well. Please correlate with Dr. Reynolds's report for complete details. FL/FL guidance in OR IMPRESSION: Intraoperative fluoroscopy and spot films were obtained. Please see Dr. Reynolds's report for complete details.
--- NOTE | ~2024-01-05 | XR_ITS ---
EXAMINATION: XR ELBOW, LEFT CLINICAL INFORMATION: Fall open wound COMPARISON: None available. TECHNIQUE: Four views of the left elbow. FINDINGS: Moderately displaced olecranon fracture retracted along the posterior distal humerus. Overlying soft tissue defect. Joint space alignment otherwise maintained. XR/XR elbow LT min 3V IMPRESSION: 1. Moderately displaced olecranon fracture retracted along the posterior distal humerus. 2. Overlying soft tissue defect.
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
[2024-01-05] MEDS: Diphth,Pertus(ACell),Tet Adult 0.5 ML SYRINGE IM (10:45)
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
[2024-01-05] MEDS: Morphine Sulfate 4 MG/ML CARTRIDGE IVPUSH (11:41)
--- NOTE | 2024-01-05 11:52 | PC.NURSE ---
plan for patient to go to surgery today, ortho in meeting with patient.
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
--- NOTE | 2024-01-05 13:15 | P.CONAN_ITS ---
[facility] Active Problems Active Problems: All Active Problems Open fracture of elbow (Acute) Raised level of immunoglobulins (Acute) Elevated serum protein level (Acute) History of hepatitis B (Acute) Colonoscopy refused (Acute) Generalized anxiety disorder (Acute) Essential hypertension (Acute) Hepatitis C (Acute) Past Medical History Medical History Hepatitis C History of coma Family History Family History Mother Stomach cancer Maternal Grandmother Eyelid cancer Father Cancer Other Substance use disorder Surgical History Surgical History H/O cataract extraction History of Problems with Anesthesia: No Social History Social History Household Members Other:: sibling Housing: House Alcohol intake: former Patient Tobacco Use Status: Former Tobacco user e-Cigarette/Vaping Use: Never Used Second Hand Smoke Exposure: No Substance Use Type Other:: now on suboxone films Are you DNR?: No Advance Directives: No Advance Directives Information Provided: No Do you have a plan to hurt others: No Plan service: No Current occupational status: disabled Cognitive needs: No Hearing needs: No Vision needs: Yes (Glasses) Meds Allergies Allergy/AdvReac Type Severity Reaction Status Date / Time No Known Allergies Allergy Verified 01/05/24 09:06 Exam Height,Weight and Vital Signs: Height 5 ft 11 in Weight 77.111 kg Last Vital Signs Temp 97.1 F 01/05/24 12:44 Pulse 57 01/05/24 12:44 Resp 18 01/05/24 12:44 BP 116/70 01/05/24 12:44 Pulse Ox 99 01/05/24 12:44 O2 Del Method Room Air 01/05/24 12:44 Airway Mallampati Class: III (globally poor dentition) TM Dist: >3cm Neck ROM: Full Loose/Missing/Broken Teeth: Yes, Upper and Lower Heart: RRR Lungs: CTA Assessment and Plan Assessment Anesthesia Assessment: Anesthesia Plan Discussed and Chart Reviewed Final Anesthetic Review History of Problems with Anesthesia: No NPO: Yes ASA Class: III Final Preanesthetic Review: Meds/Allgs Chart Reviewed, Consent Obtained/Reviewed and Anes Risks/Benef Reviewed Patient Risk: Intermediate Procedure Risk: Low Anesthetic Plan Anesthetic Plan: GA and Regional Block Disposition: Standard PACU
--- NOTE | 2024-01-05 14:38 | PM.OP ---
Brief Operative Note Date of Service: 01/05/24 Pre-op diagnosis: Open left olecranon fracture Post-op diagnosis: same Procedure: Internal fixation left olecranon Irrigation and debridement open wound, left elbow Implants: 0.54 k-wire x 2 20 g cerclage wire x 1 Surgeon: Edvin Reynolds MD Anesthesia: GETA and regional Was an Maintenance Parts Technician used for this Procedure?: Yes Maintenance Parts Technician: Jt Berkowitz Estimated blood loss (mL): 50 IV fluids (mL): 800 Pathology: none sent Condition: stable Disposition: PACU
[2024-01-05] MEDS: oxyCODONE HCl Immed Release 5 MG TABLET PO ×2 (16:24→19:22)
[2024-01-05] MEDS: 0.9 % Sodium Chloride Flush 3 ML SYRINGE IVFLUSH (16:25)
[2024-01-05] MEDS: Lactated Ringers 1,000 ML 100 ML IVCONT (16:26)
--- NOTE | 2024-01-05 16:52 | PHA.MEDREC ---
Pharmacy Consult ? Medication Reconciliation Pharmacy has completed the medication reconciliation. Spoke to patient to confirm med.
[2024-01-05] MEDS: ceFAZolin Sodium/Dextrose,Iso 2 GM/50 ML PIGGYBACK IV (18:27)
[2024-01-05] MEDS: HYDROmorphone HCl 0.5 MG/0.5 ML SYRINGE 0.25 MG IVPUSH (21:58)
[2024-01-06] MEDS: ceFAZolin Sodium/Dextrose,Iso 2 GM/50 ML PIGGYBACK IV ×2 (00:05→06:02)
[2024-01-06] MEDS: oxyCODONE HCl Immed Release 5 MG TABLET PO ×3 (00:06→07:17)
[2024-01-06] MEDS: HYDROmorphone HCl 0.5 MG/0.5 ML SYRINGE 0.25 MG IVPUSH (02:01)
[2024-01-06] MEDS: Lactated Ringers 1,000 ML 100 ML IVCONT (02:03)
[2024-01-06 03:41] VITALS: BP 91/54; PULSE 55; RESP 16; TEMP 36.1; O2SAT 98
[2024-01-06 03:58] VITALS: BP 118/66; PULSE 58
[2024-01-06 07:17] VITALS: BP 108/63; PULSE 54; RESP 14; TEMP 36; O2SAT 98
--- NOTE | 2024-01-06 07:56 | PM.DS ---
DS: Providers Provider Date of Service: 01/06/24 Primary care physician: Geovanni Bernal MD Consults: 01/05/24 15:59 Consult to Hospitalist Routine Comment: Consulting Provider: Hospitalist Reason For Exam: HTN DS: Diagnosis Discharge Diagnosis (1) Open fracture of elbow: Status: Acute DS: Summary Hospital Course Hospital Course: The patient underwent a successful left elbow lavage and ORIF, they were transferred to PACU and then to the floor to recover. During their stay, their vitals were stable, afebrile at 96.8. POD0 they were started on IV Ancef for 24 hours. Prior to discharge, their dressing and splint was clean dry and intact, and the plan was to be discharged home with oral antibiotics and out patient followup. Time Attestation Discharge Coordination Time (in mins): 30 Quality: Safe Use of Opioids Does Pt have an Active Cancer Diagnosis on the Problem List?: No Quality: Stroke Does the patient have a stroke diagnosis?: No Physical Exam Vital Signs: Vital Signs: Last Vital Signs Temp 96.8 F 01/06/24 07:17 Pulse 54 01/06/24 07:17 Resp 14 01/06/24 07:17 BP 108/63 01/06/24 07:17 Pulse Ox 98 01/06/24 07:17 O2 Del Method Room Air 01/06/24 07:17 O2 Flow Rate 2 01/05/24 15:50 BMI result Body Mass Index 23.7 Const: General: cooperative, healthy appearing and no acute distress Resp: Effort & Inspection: normal respiratory effort and able to speak in complete sentences Cardio: Rate: regular rate Peripheral pulses: Peripheral pulses 2+ throughout GI: Palpation (GI): Soft to palpation Skin: Lesions: no lesions Rashes: no rashes Extrem: Other: Left elbow splint is c/d/i. Able to flex and extend at the wrist. Sensation intact. Capillary refill is brisk. Discharge Plan Discharge Patient Disposition: Home, Self-Care Referrals: Duyen Edward PA-C [Physician Dielectric Press Operator] - 2 Weeks Geovanni Bernal MD [Primary Care Provider] - 1 Week Discharge Medications: New acetaminophen 325 mg Tablet 650 mg PO Q6H PRN (Reason: Pain, Mild (Pain Scale 1-3), fever or headache) 30 Days Qty: 240 0RF oxycodone 5 mg Tablet 5 mg PO Q4H 7 Days Qty: 42 0RF Rx Instructions: Partial Fill upon patient request. doxycycline hyclate 100 mg tablet 100 mg PO BID 14 Days Qty: 28 0RF Continued clonazepam 0.5 mg tablet 0.5 mg PO BID Qty: 60 0RF Discharge Orders: Discharge Order (Routine); Ordered 01/06/24 Ordered By: Duyen Edward Diet: Advance to usual diet Activity on Discharge: Use Splints or Immobilizers Activity Restrictions/Additional Instructions: Keep splint clean, dry, and intact Elevate throughout the day No lifting Perform fist/finger exercises throughout the day Do not bathe or shower--keep splint dry Take Percocet 5/325mg tabs 1 tab by mouth every 4-6 hours as needed Complete full course of oral antibiotics Call [facility] orthopedics with any questions or concerns. Follow up with orthopedics in 7-10 days post op Print Language: Romanian
--- NOTE | 2024-01-06 07:56 | HO.POSTANES ---
Post Anesthesia Evaluation Post Anesthesia Evaluation Date of Service: 01/05/24 Vital Signs: Vital Signs Temp Pulse Resp BP Pulse Ox O2 Del Method 01/06/24 07:17 96.8 F 54 14 108/63 98 Room Air 01/06/24 03:58 58 118/66 01/06/24 03:41 97.0 F 55 16 91/54 L 98 Room Air 01/05/24 23:24 97.7 F 54 16 111/62 97 Room Air Anesthesia: General Mental Status: Awake Pain Control: Satisfactory Nausea/Vomiting: None Hydration: Adequate Anesthesia-Related Issues: No Anes. Related Issues
--- NOTE | 2024-01-06 09:14 | PM.EVENT ---
Event Note Date of Service: 01/06/24 Event Note: 68 year old male with remote history of hypretension who is no longer on antihypertensives. He is normotensive is the hospital. Would not recommend addition of medications at this time. Can follow up with PCP. Time Spent With Patient Time: Total time managing care of this patient today ____ minutes.
--- NOTE | 2024-01-06 09:15 | MHC.CM.PN ---
IMM delivered. Patient lives in a home w/ siblings. Functionally independent. Denies use of DME or services. PCP Geovanni Bernal MD Completed HCP naming his sister, Tierney, as HCA. DP: Medically cleared for dc home self care. Will be transported via [facility] shuttle at 1130. RN aware.
--- NOTE | 2024-01-13 09:34 | P.OP_ITS ---
Operative Note Operative Note Date of Service: 01/05/24 Narrative: Date of Service: 01/05/24 Pre-op diagnosis: Open left olecranon fracture Post-op diagnosis: same Procedure: Internal fixation left olecranon Irrigation and debridement open wound, left elbow Implants: 0.54 k-wire x 2 20 g cerclage wire x 1 Surgeon: Edvin Reynolds MD Anesthesia: GETA and regional Was an Electrical Prospecting Observer used for this Procedure?: Yes Electrical Prospecting Observer: Jt Berkowitz Estimated blood loss (mL): 50 IV fluids (mL): 800 Pathology: none sent Condition: stable Disposition: PACU Patient was brought to the operating room and placed supine on the surgical table. She was prepped and draped in standard sterile fashion and a time out was called to indentify proper site, proper procedure and IV antibiotics per weight were administered. I began by examining the wound. This was a open olecranon fracture and I could see clearly into the joint. The level of contamination, however, was minimal. There was no debris or dirt. I began by gently irrigating out clot and fibrous debris. I used a rongeur and a curette to clean up the bony surfaces and then irrigated copiously with 3 L of warm saline. I then turned my attention to fixation. Two K-wires were placed from posterior to anterior and proximal to distal obliquely through the distal aspect of the olecranon and across the fracture. These ends were left out and a 20 gauge cerclage wire was inserted through the ulnar shaft and then wrapped in a figure of 8 fashion around the 2 K-wire ends. This compressed the fracture and I was satisfied with the alignment under direct visual inspection. A cerlage knot was twisted and buried. The k wires were impacted into the bone. Biplanar radiographs were obtained and I was satisfied with the alignment. The skin was closed with nylon and sterile dressings were applied. The patient was extubated and brought to the recovery room in stable condition. There were no known complications.
== END 2024-01-06 11:26 | disposition home or self-care (01) ==
LOC: HO.ED 12:30 → HO.SSS 12:36 → HO.S3 15:48
PROVIDERS: Emergency Provider Emergency Medicine; PCP Internal Medicine; Visit Provider Orthopaedic Surgery
PROC: (CPT 24685; principal; 2024-01-05 13:00)
DX: S52.022B Displaced fracture of olecranon process without intraarticular extension of left ulna, initial encounter for open fracture type I or II (principal); S51.012A Laceration without foreign body of left elbow, initial encounter; Z23 Encounter for immunization; V19.9XXA Pedal cyclist (driver) (passenger) injured in unspecified traffic accident, initial encounter; Y93.55 Activity, bike riding; Y92.9 Unspecified place or not applicable; Y99.8 Other external cause status; B19.20 Unspecified viral hepatitis C without hepatic coma; Z87.820 Personal history of traumatic brain injury; Z87.891 Personal history of nicotine dependence
CPT/HCPCS: 24685; 73080; 90471; 90715; 96365; 96375; 99284; 99285; J0665; J0690; J1100; J1170; J2250; J2270; J2405; J2704; J2795; J3010; J7120

== ENCOUNTER → 2024-01-05 12:30 | Outpatient (BNV) | payer MEDICARE, MEDICAID, SELFPAY | PROVIDERS: Emergency Provider Emergency Medicine; PCP Internal Medicine; Visit Provider Orthopaedic Surgery | DX: S52.022B Displaced fracture of olecranon process without intraarticular extension of left ulna, initial encounter for open fracture type I or II (principal) | CPT/HCPCS: 24685; 99024; 99222 ==

== ENCOUNTER 2024-01-22 07:56 | Outpatient (REF) | payer MEDICARE, MEDICAID, SELFPAY ==
--- NOTE | ~2024-01-22 | XR_ITS ---
EXAMINATION: XR ELBOW, LEFT CLINICAL INFORMATION: Left elbow pain COMPARISON: Radiographs 01/05/2024 TECHNIQUE: AP, lateral, and oblique views of the left elbow. FINDINGS: Significantly improved alignment of the olecranon fracture following pin and wire fixation of the fracture. Persistent lucency and some bone resorption along the fracture. Persistent joint effusion. XR/XR elbow LT 2V IMPRESSION: Significantly improved alignment of the olecranon fracture following pin and wire fixation. Persistent lucency and with some bone resorption along the fracture. Cannot exclude osteomyelitis in the appropriate clinical setting. Recommend close clinical and/or imaging follow-up.
== END 2024-01-22 07:57 | disposition home or self-care (01) ==
LOC: HO.HOSX 07:56
PROVIDERS: Visit Provider Orthopaedic Surgery
DX: M25.522 Pain in left elbow (principal); S52.022E Displaced fracture of olecranon process without intraarticular extension of left ulna, subsequent encounter for open fracture type I or II with routine healing; X58.XXXD Exposure to other specified factors, subsequent encounter; Z98.890 Other specified postprocedural states
CPT/HCPCS: 73070; 99212

== ENCOUNTER 2024-01-22 10:05 | Outpatient (AMB) | payer MEDICARE, MEDICAID, SELFPAY ==
--- NOTE | 2024-01-22 10:07 | MHC.OFFVIS ---
Intake Visit Reasons: PO-s/p left elbow open fx with ORIF Intake Note: Sanjay is a 68 year old right hand dominant male who presents today for his first post operative visit s/p left elbow ORIF and I&D 01/05/24. Patient reports not having much pain in his elbow, however haivng pain from his forearm to his wrist. Allergies No Known Allergies Allergy (Verified 01/22/24 10:30) HPI HPI PO-s/p left elbow open fx with ORIF: Details: no complaints. Splint intact. wearing sling. PFSH Medical History Hepatitis C History of coma Surgical History H/O cataract extraction Family History Mother Stomach cancer Maternal Grandmother Eyelid cancer Father Cancer Other Substance use disorder Social History Household Members: Family Household Members Other:: sibling Housing: House Do you presently have visiting nurse or other home services: No Alcohol intake: former Patient Tobacco Use Status: Former Tobacco user e-Cigarette/Vaping Use: Never Used Second Hand Smoke Exposure: No service: No Current occupational status: disabled Cognitive needs: No Hearing needs: No Vision needs: Yes (Glasses) Physical Exam Extrem Other: inc c/d/i no discharge Assessment & Plan Assessment & Plan (1) Open olecranon fracture: Code(s): S52.023B - Displaced fracture of olecranon process without intraarticular extension of unspecified ulna, initial encounter for open fracture type I or II Category: Medical Plan: SLing and gentle ROM ( active and active assited.). OT ordered. f/u 4 weeks Orders: Orders OT Evaluation and Treatment 01/22/24 S52.023B - Displaced fracture of olecranon process without intraarticular extension of unspecified ulna, initial encounter for open fracture type I or II XR elbow LT 2V 01/22/24 M25.529 - Pain in unspecified elbow Coding Level of Care Code Global (09617) Diagnoses Open olecranon fracture S52.023B
== END 2024-01-22 12:18 | disposition home or self-care (01) ==
PROVIDERS: PCP Internal Medicine; Visit Provider Orthopaedic Surgery
DX: S52.02 Fracture of olecranon process without intraarticular extension of ulna (principal)
CPT/HCPCS: 99024

== ENCOUNTER 2024-02-10 08:21 | Outpatient (AMB) | payer MEDICARE, MEDICAID, SELFPAY ==
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
[2024-02-10 09:01] VITALS: BP 110/72; PULSE 65; O2SAT 99; BMI 22.6
== END 2024-02-10 14:08 | disposition home or self-care (01) ==
PROVIDERS: PCP Internal Medicine; Visit Provider Internal Medicine
DX: I10 Essential (primary) hypertension (principal); F41.1 Generalized anxiety disorder; S52.02 Fracture of olecranon process without intraarticular extension of ulna
CPT/HCPCS: 99214; G2211

== ENCOUNTER 2024-02-15 13:13 | Outpatient (REF) | payer MEDICARE, MEDICAID, SELFPAY ==
--- NOTE | ~2024-02-15 | XR_ITS ---
EXAMINATION: XR ELBOW, LEFT CLINICAL INFORMATION: Pain. COMPARISON: Radiograph left elbow 01/22/2024. TECHNIQUE: AP, lateral, and oblique views of the left elbow. FINDINGS: Stable alignment of the olecranon fracture with unchanged appearance of overlying pins and fixation wires. Redemonstration of heterogeneity, lucency and bone resorption in the olecranon along the fracture site with increased sclerosis compared to most recent prior. Unchanged trace curvilinear radiodensities adjacent to the radial head compared to 01/05/2024, not well-seen on 01/22/2024. No significant joint effusion. XR/XR elbow LT 2V IMPRESSION: Increased sclerosis associated with the region of heterogeneity, lucency and resorption in the olecranon fracture. As stated before, findings might be related with osteomyelitis or evolving healing. Recommend clinical correlation.
== END 2024-02-15 13:14 | disposition home or self-care (01) ==
LOC: HO.HOSX 13:13
PROVIDERS: Visit Provider Orthopaedic Surgery
DX: S52.022B Displaced fracture of olecranon process without intraarticular extension of left ulna, initial encounter for open fracture type I or II (principal)
CPT/HCPCS: 73070; 99212

== ENCOUNTER 2024-02-15 13:36 | Outpatient (AMB) | payer MEDICARE, MEDICAID, SELFPAY ==
--- NOTE | 2024-02-15 13:39 | A.OFFVIS_ITS ---
Vital Signs 02/15/24 13:40 Height 5 ft 11 in Weight 162 lb BMI 22.6 Intake Visit Reasons: PO-s/p left elbow open fx with ORIF Intake Note: Sanjay is a 68 year old right hand dominant male who presents today for his first post operative visit s/p left elbow ORIF and I&D 01/05/24. Patient reports that the elbow is doing well, he continues to wrap it with an eboni wrap. He does feel pain from about mid forearm to the wrist. Denies numbness and tingling. Allergies No Known Allergies Allergy (Verified 02/10/24 09:41) HPI HPI PO-s/p left elbow open fx with ORIF: Details: Sanjay is a 68 year old right hand dominant male who presents today for his first post operative visit s/p left elbow ORIF and I&D 01/05/24. Patient reports that the elbow is doing well, he continues to wrap it with an eboni wrap. He does feel pain from about mid forearm to the wrist. Denies numbness and tingling. I sent him to occupational therapy at last visit but he states he does his therapy on his own. Unsurprisingly he is stiff. [facility] Medical History Essential hypertension Generalized anxiety disorder Open olecranon fracture Hepatitis C History of coma Surgical History History of elbow surgery H/O cataract extraction Family History Mother Stomach cancer Maternal Grandmother Eyelid cancer Father Cancer Other Substance use disorder Social History Household Members: Family Household Members Other:: sibling Housing: House Do you presently have visiting nurse or other home services: No Alcohol intake: former Patient Tobacco Use Status: Former Tobacco user e-Cigarette/Vaping Use: Never Used Second Hand Smoke Exposure: No service: No Current occupational status: disabled Cognitive needs: No Hearing needs: No Vision needs: Yes (Glasses) Physical Exam Vital Signs: BMI result Body Mass Index 22.6 Extrem Other: Incision clean dry and intact 32 95 degrees of motion. Full pronation supination to 60 degrees. Incision clean dry and intact. Results Reviewed Results Reviewed: I personally reviewed relevant radiographs. No hardware complications. Olecranon fracture still present Assessment & Plan Assessment & Plan (1) Open olecranon fracture: Code(s): S52.023B - Displaced fracture of olecranon process without intraarticular extension of unspecified ulna, initial encounter for open fracture type I or II Category: Medical Plan: Occupational therapy for range of motion. No resistance or lifting. Follow up in 6 weeks. Orders: Orders XR elbow LT 2V Today M25.529 - Pain in unspecified elbow OT Evaluation and Treatment Today S52.023B - Displaced fracture of olecranon process without intraarticular extension of unspecified ulna, initial encounter for open fracture type I or II Coding Level of Care Code Global (18642) Diagnoses Open olecranon fracture S52.023B
[2024-02-15 13:40] VITALS: BMI 22.6
== END 2024-02-15 16:21 | disposition home or self-care (01) ==
PROVIDERS: PCP Internal Medicine; Visit Provider Orthopaedic Surgery
DX: S52.02 Fracture of olecranon process without intraarticular extension of ulna (principal)
CPT/HCPCS: 99024

== ENCOUNTER 2024-03-22 08:23 | Outpatient (AMB) | payer MEDICARE, MEDICAID, SELFPAY ==
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
[2024-03-22 08:26] VITALS: BP 138/70; PULSE 72; O2SAT 98; BMI 22.4
== END 2024-03-22 10:35 | disposition home or self-care (01) ==
PROVIDERS: PCP Internal Medicine; Visit Provider Internal Medicine
DX: F41.1 Generalized anxiety disorder (principal); I10 Essential (primary) hypertension
CPT/HCPCS: 99214; G2211

== ENCOUNTER 2024-03-28 12:06 | Outpatient (REF) | payer MEDICARE, MEDICAID, SELFPAY ==
--- NOTE | ~2024-03-28 | XR_ITS ---
EXAMINATION: XR ELBOW, LEFT CLINICAL INFORMATION: Pain in the left elbow. COMPARISON: None available. TECHNIQUE: AP, lateral, and oblique views of the left elbow. FINDINGS: 2 K-wires and a cerclage wire are present at the olecranon across the olecranon fracture. No definite osseous bridging on these images. Alignment appears anatomic. 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 No joint effusion. Soft tissue swelling and subcutaneous edema. XR/XR elbow LT 2V IMPRESSION: 1. Status post ORIF of the olecranon fracture. No definite osseous bridging. Alignment appears anatomic. 2. Mild osteoarthritis in the elbow. Electronically signed by: Parveen Bartholomew MD 04/03/2024 09:02 PM EDT
== END 2024-03-28 12:07 | disposition home or self-care (01) ==
LOC: HO.XRAY 12:06
PROVIDERS: PCP Internal Medicine; Visit Provider Orthopaedic Surgery
DX: M25.522 Pain in left elbow (principal); S52.02 Fracture of olecranon process without intraarticular extension of ulna
CPT/HCPCS: 73070; 99212

== ENCOUNTER 2024-03-28 12:06 | Outpatient (AMB) | payer MEDICARE, MEDICAID, SELFPAY ==
--- NOTE | 2024-03-28 12:54 | A.OFFVIS_ITS ---
Intake Visit Reasons: PO-s/p left elbow open fx with ORIF Intake Note: Sanjay is a 68 year old right hand dominant male who presents today for his first post operative visit s/p left elbow ORIF and I&D 01/05/24. Patient reports that he is having pain occasionally with activity. He has been working on ROM, and occasionally has swelling of the hand. Allergies No Known Allergies Allergy (Verified 03/28/24 12:56) HPI HPI PO-s/p left elbow open fx with ORIF: Details: Sanjay is a 68 year old right hand dominant male who presents today for his first post operative visit s/p left elbow ORIF and I&D 01/05/24. Patient reports that he is having pain occasionally with activity. He has been working on ROM, and occasionally has swelling of the hand. [facility] Medical History Essential hypertension Generalized anxiety disorder Open olecranon fracture Hepatitis C History of coma Surgical History History of elbow surgery H/O cataract extraction Family History Mother Stomach cancer Maternal Grandmother Eyelid cancer Father Cancer Other Substance use disorder Social History Household Members: Family Household Members Other:: sibling Housing: House Do you presently have visiting nurse or other home services: No Alcohol intake: former Patient Tobacco Use Status: Former Tobacco user e-Cigarette/Vaping Use: Never Used Second Hand Smoke Exposure: Yes service: No Current occupational status: disabled Cognitive needs: No Hearing needs: No Vision needs: Yes (Glasses) Physical Exam Extrem Other: 15-100 degrees of motion 40 degrees of supination and 70 degrees pronation Well-healed incision Prominent olecranon wire but skin intact. Results Reviewed Results Reviewed: I personally reviewed relevant radiographs. Healing olecranon fracture with no hardware complications Assessment & Plan Assessment & Plan (1) Open olecranon fracture: Code(s): S52.023B - Displaced fracture of olecranon process without intraarticular extension of unspecified ulna, initial encounter for open fracture type I or II Category: Medical Plan: Patient is approximately 10 weeks status post open olecranon fracture. He is doing well and healing. He is slightly stiff and 1 of the wires is slowly working its way out but I would recommend he continue to work on range of motion and protecting the skin. I would like to see him back in 2 months' time. Orders: Orders XR elbow LT 2V Today M25.529 - Pain in unspecified elbow Coding Level of Care Code Global (02260) Diagnoses Open olecranon fracture S52.023B
== END 2024-03-28 13:57 | disposition home or self-care (01) ==
PROVIDERS: PCP Internal Medicine; Visit Provider Orthopaedic Surgery
DX: S52.02 Fracture of olecranon process without intraarticular extension of ulna (principal)
CPT/HCPCS: 99024

== ENCOUNTER 2024-05-30 08:39 | Outpatient (REF) | payer MEDICARE, MEDICAID, SELFPAY | END 2024-05-30 08:40 | disposition home or self-care (01) | LOC: HO.HOSX 08:39 | PROVIDERS: Visit Provider Orthopaedic Surgery | DX: M25.522 Pain in left elbow (principal); S52.02 Fracture of olecranon process without intraarticular extension of ulna | CPT/HCPCS: 73070; 99212 ==

== ENCOUNTER 2024-05-30 10:51 | Outpatient (AMB) | payer MEDICARE, MEDICAID, SELFPAY ==
[2024-05-30 11:01] VITALS: BMI 22.3
--- NOTE | 2024-05-30 11:01 | MHC.OFFVIS ---
Vital Signs 05/30/24 11:01 Height 5 ft 11 in Weight 160 lb BMI 22.3 Intake Visit Reasons: OV - Left Olecranon ORIF w/ I&D 01/05/24 Intake Note: Sanjay is a 69 year old right hand dominant male who presents today for a follow up of his left elbow s/p Left Olecranon ORIF w/ I&D 01/05/24. At his last visit on 03/28/24 he was having some continued stiffness and concerns of a wire slowly working its way out. Patient reports that he has been working on his ROM at home with no improvements. He continues to have pain and is looking to have his hardware removed. Allergies No Known Allergies Allergy (Verified 03/28/24 12:56) HPI HPI OV - Left Olecranon ORIF w/ I&D 01/05/24: Details: Sanjay is a 69 year old right hand dominant male who presents today for a follow up of his left elbow s/p Left Olecranon ORIF w/ I&D 01/05/24. At his last visit on 03/28/24 he was having some continued stiffness and concerns of a wire slowly working its way out. Patient reports that he has been working on his ROM at home with no improvements. He continues to have pain and is looking to have his hardware removed. [facility] Medical History Essential hypertension Generalized anxiety disorder Open olecranon fracture Hepatitis C History of coma Surgical History History of elbow surgery H/O cataract extraction Family History Mother Stomach cancer Maternal Grandmother Eyelid cancer Father Cancer Other Substance use disorder Social History Household Members: Family Household Members Other:: sibling Housing: House Do you presently have visiting nurse or other home services: No Alcohol intake: former Patient Tobacco Use Status: Former Tobacco user e-Cigarette/Vaping Use: Never Used Second Hand Smoke Exposure: Yes service: No Current occupational status: disabled Cognitive needs: No Hearing needs: No Vision needs: Yes (Glasses) Physical Exam Vital Signs: BMI result Body Mass Index 22.3 Extrem Other: Prominent olecranon hardware with skin intact and tender to palpation. Full range of motion elbow. Results Reviewed Results Reviewed: Prominent hardware with no hardware complications. Incompletely healed olecranon fracture Assessment & Plan Assessment & Plan (1) Open olecranon fracture: Code(s): S52.023B - Displaced fracture of olecranon process without intraarticular extension of unspecified ulna, initial encounter for open fracture type I or II Category: Medical Plan: This is a 69-year-old gentleman with a history of an open olecranon fracture that was treated with ORIF. He has done well but the hardware is prominent. I explained that the fracture does not appear to be fully healed but he does not care he wants the hardware removed. There is a risk of fracture displacement but he does not do heavy lifting. Either way the hardware needs to be removed given its prominence. I discussed the risk, benefits and alternatives including, but not limited to, the risk of fracture displacement, pain, need for further surgery. He expressed understanding and we will proceed forward accordingly. Orders: Orders XR elbow LT 2V Today M25.529 - Pain in unspecified elbow Coding Level of Care Code Est Pt Level 4 (16160) Diagnoses Open olecranon fracture S52.023B
== END 2024-05-30 11:58 | disposition home or self-care (01) ==
PROVIDERS: PCP Internal Medicine; Visit Provider Orthopaedic Surgery
DX: S52.022B Displaced fracture of olecranon process without intraarticular extension of left ulna, initial encounter for open fracture type I or II (principal); T84.123A Displacement of internal fixation device of bone of left forearm, initial encounter
CPT/HCPCS: 99214

== ENCOUNTER → 2024-06-07 13:15 | Outpatient (AMB) | payer MEDICARE, MEDICAID, SELFPAY ==
[2024-06-07 13:16] VITALS: BP 138/86; PULSE 73; O2SAT 96; BMI 22.6
--- NOTE | 2024-06-07 13:16 | MHC.PC.OV ---
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 Psychiatry Required: No Accompanied by: Self / Same As Patient Allergies No Known Allergies Allergy (Verified 06/16/24 17:08) Medication List - Last Reconciled 06/07/24 by Geovanni Bernal MD clonazepam 0.5 mg PO BEDTIME Tobacco use date assessed: 06/07/24 Fall risk assessment: 1 Fall in past year Last assessed Fall Risk: 06/07/24 Dental Screening Dental Screen Date: 06/07/24 Did you have a dental visit in the last 12 months?: No Did you have a dental problem in the last 6 months where you did not have access to dental care?: No Was dental information given to patient?: No HPI 3 month f/u HPI Details 69-year-old male presents to the office to discuss his chronic medical conditions. Patient is at baseline state of health. Able to function and do all activities of daily living. [facility] Medical History Open olecranon fracture Generalized anxiety disorder Essential hypertension Hepatitis C History of coma Surgical History History of elbow surgery H/O cataract extraction Family History Mother Stomach cancer Maternal Grandmother Eyelid cancer Father Cancer Other Substance use disorder Social History Household Members: Family Household Members Other:: sibling Housing: House Do you presently have visiting nurse or other home services: No Alcohol intake: former Patient Tobacco Use Status: Former Tobacco user e-Cigarette/Vaping Use: Never Used Second Hand Smoke Exposure: Yes Advance Directives: No Advance Directives Information Provided: Yes service: No Current occupational status: disabled Cognitive needs: No Hearing needs: No Vision needs: Yes (Glasses) Questionnaire PHQ-9 Over the last 2 weeks, how often have you been bothered by any of the following problems? 1. Little interest or pleasure in doing things: nearly every day 2. Feeling down, depressed, or hopeless: nearly every day 3. Trouble falling or staying asleep, or sleeping too much: more than half the days 4. Feeling tired or having little energy: several days 5. Poor appetite or overeating: more than half the days 6. Feeling bad about yourself - or that you are a failure or have let yourself or your family down: nearly every day 7. Trouble concentrating on things, such as reading the newspaper or watching television: not at all 8. Moving or speaking so slowly that other people could have noticed. Or the opposite - being so fidgety or restless that you have been moving around a lot more than usual: several days 9. Thoughts that you would be better off or of hurting yourself in some way: several days Total score: 16 Depression Screening Interpretation: Positive Depression Screening Follow-up: Declines treatment Depression Screening Done: Yes Source: Developed by Drs. Steven Peña, Natalya Pace, Fadi Marc and colleagues, with an educational kimberly from [employer]. Thrive Questionnaire Date Thrive assessed: 06/07/24 I am a: Patient What is your living situation today?: I have a steady place to live Within the past 12 months, did the food you bought not last and you didn't have the money to get more?: Never true Within the past 12 months, did you worry whether your food would run out before you got money to buy more?: Never true Do you have trouble paying for medicines?: No Do you have trouble getting transportation to medical appointments?: No Do you have trouble paying your heating and electricity bill?: No Do you have trouble taking care of your child, family member or friend?: No Do you have trouble with day-to-day activities such as bathing, preparing meals, shopping, managing finances, etc.?: No Are you currently unemployed and looking for a job?: No Are you interested in more education?: No Please select the resources that you would like help with: None Currently or been in a relationship where the following occur: No concerns reported THRIVE Score: 0 AUDIT C Alcohol Use Questionnaire (AUDIT-C) 1. How often do you have a drink containing alcohol?: Never Total Score: 0 AICHA-7 AMB Questionnaire AICHA-7 Date AICHA - 7 assessed: 06/07/24 Feeling nervous, anxious, or on edge: 3 = Nearly every day Not being able to stop or control worryin = Nearly every day Worrying too much about different things: 3 = Nearly every day Trouble relaxin = More than half the days Being so restless that it is hard to sit still: 3 = Nearly every day Becoming easily annoyed or irritable: 1 = Several days Feeling afraid as if something awful might happen: 3 = Nearly every day Total AICHA-7 score (0-4 normal; 5-9 mild; 10-14 moderate; 15-21 severe): 18 Source: Developed by Drs. Steven Peña, Natalya Pace, Fadi Marc and colleagues, with an educational kimberly from [employer]. Physical exam (Primary Care) Vital Signs: Last Vital Signs Pulse 73 06/07/24 13:16 BP 138/86 06/07/24 13:16 Pulse Ox 96 06/07/24 13:16 Oxygen Delivery Method Room Air 06/07/24 13:16 BMI result Body Mass Index 22.6 Tobacco/Smoking Status: Tobacco use Status Tobacco use date assessed 06/07/24 06/07/24 13:23 Patient Tobacco Use Status Former Tobacco user 06/07/24 13:23 e-Cigarette/Vaping Use Never Used 06/07/24 13:23 PHQ-9: PHQ-9 Score PHQ-9: Total score 16 06/07/24 13:23 Depression Screening Interpretation: Positive Depression Screening Follow-up: Declines treatment Thrive Assessment: Date of Thrive Assessment Date Thrive assessed 06/07/24 06/07/24 13:23 Currently or been in a relationship where the following occur: No concerns reported Const General: cooperative and healthy appearing Nutritional Appearance: well nourished Orientation/consciousness: patient oriented x3 Limitations: no limitations HENMT Head: Yes normal to inspection Eyes General: appearance normal, both eyes and all related structures Neck Neck: Yes normal visual inspection Chest Chest palpation & inspection: normal palpation of entire chest wall Resp Effort & Inspection: normal respiratory effort Neuro General: patient oriented x3 Coding Level of Care Code Est Pt Level 3 (96285) Complex EM visit Add On G2211 Diagnoses Generalized anxiety disorder F41.1 Essential hypertension I10 Assessment & Plan Assessment & Plan (1) Generalized anxiety disorder: Code(s): F41.1 - Generalized anxiety disorder Category: Medical Plan: Condition is the same. Continue current medications. (2) Essential hypertension: Comment: pt denies--no meds taken Code(s): I10 - Essential (primary) hypertension Category: Medical Plan: Blood pressure is in range.
== END ==
PROVIDERS: PCP Internal Medicine; Visit Provider Internal Medicine
DX: F41.1 Generalized anxiety disorder (principal); I10 Essential (primary) hypertension

== ENCOUNTER → 2024-06-07 13:15 | Outpatient (BNVA) | payer MEDICARE, MEDICAID, SELFPAY | PROVIDERS: PCP Internal Medicine; Visit Provider Internal Medicine | DX: F41.1 Generalized anxiety disorder (principal); I10 Essential (primary) hypertension | CPT/HCPCS: 96127; 99212 ==

== ENCOUNTER → 2024-06-15 06:49 | Outpatient (BNV) | payer MEDICARE, MEDICAID, SELFPAY | PROVIDERS: PCP Internal Medicine; Visit Provider Orthopaedic Surgery | DX: Z47.2 Encounter for removal of internal fixation device (principal) | CPT/HCPCS: 20680 ==

== ENCOUNTER → 2024-06-15 06:49 | Day surgery (SDC) | payer MEDICARE, MEDICAID, SELFPAY ==
[2024-06-15 07:11] VITALS: BMI 22.6
--- NOTE | 2024-06-15 07:35 | MHC.SHP ---
Pre-Procedural Eval Section A - 24 Hr Update-Section A only Date of Service: 06/15/24 The patient is an INPATIENT: No Changes since office visit: No Cold of Flu in the past 2 weeks, No New Medical Problems, No Changes in Medication and No Patient answered all questions The patient has been examined within 24 hours of the surgical procedure. The History & Physical has been completed within 30 days and I have reviewed it.: Yes Section B - Complete if H&P > 30 days Chief Complaint: Other mechanical complication of internal fixation Allergies: Allergies Allergy/AdvReac Type Severity Reaction Status Date / Time No Known Allergies Allergy Verified 06/15/24 07:20 Plan I have reviewed the history and physical and performed a pertinent physical examination on my patient. No changes have occurred unless specified. Time Spent With Patient Time: Total time managing care of this patient today ____ minutes.
[2024-06-15 08:33] VITALS: BP 139/97; PULSE 74; RESP 18; TEMP 36.6; O2SAT 98
--- NOTE | 2024-06-15 08:35 | PM.OP ---
Brief Operative Note Date of Service: 06/15/24 Pre-op diagnosis: Retained orthopedic hardware left elbow Post-op diagnosis: same Procedure: KIMBERLY left elbow Implants: none Surgeon: Edvin Reynolds MD Anesthesia: GETA Was an Sheep And Wheat Farmer used for this Procedure?: Yes Sheep And Wheat Farmer: Duyen Edward Estimated blood loss (mL): 5 Pathology: none sent Condition: stable Disposition: PACU
--- NOTE | 2024-06-15 09:34 | P.OP_ITS ---
Operative Note Operative Note Date of Service: 06/15/24 Narrative: Date of Service: 06/15/24 Pre-op diagnosis: Retained orthopedic hardware left elbow Post-op diagnosis: same Procedure: KIMBERLY left elbow Implants: none Surgeon: Edvin Reynolds MD Anesthesia: KHANHA Was an Operations Team Leader used for this Procedure?: Yes Operations Team Leader: Duyen Edward Estimated blood loss (mL): 5 Pathology: none sent Condition: stable Disposition: PACU Procedure in detail: Patient was brought to the operating room and placed supine on the surgical table. He was prepped and draped in standard sterile fashion and a time out was called to identify proper site, proper procedure. I injected approximately 6 mL a combination of 0.25% Marcaine and 2% lidocaine around the olecranon and the prominent hardware. Once he was adequately anesthetized I began by making an incision over the previous surgical incision. Full thickness flaps were taken down to the wire and pin construct. The wires were removed without resistance and the wire was on tied, I then clipped 1 end and pulled it through removing all of the hardware easily. Final biplanar radiographs confirmed absence of hardware. The fracture line was still visible. I then irrigated copiously and closed with absorbable suture, skin glue and Steri-Strips. Patient was placed in sterile dressing and an additional 5 mL of anesthetic cocktail was administered. The patient was brought to the recovery room in stable condition. There were no known complications.
== END | disposition home or self-care (01) ==
PROVIDERS: PCP Internal Medicine; Visit Provider Orthopaedic Surgery
PROC: (CPT 20670; principal; 2024-06-15 07:30)
DX: T84.193A Other mechanical complication of internal fixation device of bone of left forearm, initial encounter (principal); T85.848A Pain due to other internal prosthetic devices, implants and grafts, initial encounter; G89.28 Other chronic postprocedural pain; Y79.3 Surgical instruments, materials and orthopedic devices (including sutures) associated with adverse incidents; Y92.9 Unspecified place or not applicable; Y79.2 Prosthetic and other implants, materials and accessory orthopedic devices associated with adverse incidents; M25.522 Pain in left elbow; I10 Essential (primary) hypertension; F41.9 Anxiety disorder, unspecified; B19.20 Unspecified viral hepatitis C without hepatic coma; Z98.890 Other specified postprocedural states; Z87.891 Personal history of nicotine dependence
CPT/HCPCS: 20670; J2003; J2795